=== PATIENT | male | born 1975 | race Two or more races ===

== ENCOUNTER 2023-10-10 09:42 | Day surgery (SDC) | payer OTHER ==
[2023-10-05 16:22] VITALS: BMI 50.8
[2023-10-10] MEDS ORDERED: PROPOFOL 80 ML ONE (11:24)
[2023-10-10 12:00] VITALS: RESP 16; TEMP 97.3
[2023-10-10 12:06] VITALS: BP 116/70; PULSE 85
== END 2023-10-10 12:19 | disposition home or self-care (01) ==
LOC: FASU-ENDO 09:42
PROVIDERS: ATTEND Internal Medicine Gastroenterology
PROC: 0DJD8ZZ Inspection of Lower Intestinal Tract, Via Natural or Artificial Opening Endoscopic (ICD-10-PCS; principal; 2023-10-10 11:38)
DX: Z12.11 Encounter for screening for malignant neoplasm of colon (principal)